=== PATIENT | male | born 2000 | race Hispanic/Latino ===

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

== ENCOUNTER 2023-09-11 13:26 | Emergency (ER) | payer OTHER, SELFPAY ==
[2023-09-11] MEDS ORDERED: Lidocaine/Transparent Dressing 1 EACH KIT ONE (13:54)
[2023-09-11] MEDS ORDERED: Lidocaine 1% PF 5 ML VIAL ONE (13:58)
== END 2023-09-11 14:55 ==
LOC: EEVIPCON 13:26 → ERS 13:26
DX: S01.511A Laceration without foreign body of lip, initial encounter (principal); Y92.149 Unspecified place in prison as the place of occurrence of the external cause; Y04.8XXA Assault by other bodily force, initial encounter
CPT/HCPCS: 40650